=== PATIENT | male | born 1975 | race Caucasian/White ===

== ENCOUNTER → 2018-11-18 | Outpatient (CLI) | payer BC, OTHER ==
[2015-10-08 23:18] VITALS: BP 143/87
--- NOTE | 2018-11-18 14:06 | RAD ---
Indication:Calculus of ureter. TECHNIQUE: Grayscale, color Doppler and spectral waveform is of the abdomen obtained. COMPARISON: None FINDINGS: Visualized pancreas within normal limits. Pancreatic tail not visualized due to overlying bowel gas. No aortic aneurysm. Delayed that no gallstones, pericholecystic fluid or gallbladder wall thickening. Main portal vein is patent with hepatopedal flow. CBD measures 4 mm in diameter and is within normal limits. Liver is mildly enlarged measuring 18 cm in longest dimension diffuse increased echogenicity and decreased through transmission. Right kidney measures 12.1 cm in length without hydronephrosis. Left kidney measures 11.7 cm in length without hydronephrosis. Spleen measures 14 cm in length and is mildly enlarged. 2 nonobstructing punctate bilateral renal stones. IMPRESSION: 1. Mild hepatosplenomegaly with hepatic steatosis. 2. No cholelithiasis. 3. Few bilateral punctate nonobstructing renal stones. No hydronephrosis. If concern for obstructive uropathy is high, please consider further evaluation with CT abdomen pelvis without IV contrast. Electronically signed by: Bryan Gallego DO (11/18/2018 2:03 PM) [facility]
== END | disposition home or self-care (01) ==
LOC: US 08:34
PROVIDERS: ATTEND Urology
DX: N20.0 Calculus of kidney (principal); R16.2 Hepatomegaly with splenomegaly, not elsewhere classified
CPT/HCPCS: 76700